=== PATIENT | female | born 1975 | race African-American/Black ===

== ENCOUNTER 2021-09-18 08:00 | Emergency (ER) | payer MEDICAID, MEDICARE, SELFPAY | END 2021-09-18 08:59 | disposition home or self-care (01) | LOC: CSHERS 08:00 | DX: M54.2 Cervicalgia (principal); F17.210 Nicotine dependence, cigarettes, uncomplicated | CPT/HCPCS: 99283 ==

== ENCOUNTER 2021-12-11 13:06 | Emergency (ER) | payer SELFPAY ==
[2021-12-11] MEDS ORDERED: Dexamethasone 4 MG TAB ONE (13:59)
[2021-12-11] MEDS ORDERED: Famotidine 20 MG TAB ONE (14:02)
== END 2021-12-11 14:16 | disposition home or self-care (01) ==
LOC: CSHERS 13:06
DX: R21 Rash and other nonspecific skin eruption (principal)
CPT/HCPCS: 99282; J8540

== ENCOUNTER 2021-12-31 20:09 | Emergency (ER) | payer SELFPAY ==
[2021-12-31] MEDS ORDERED: diphenhydrAMINE 50 MG/ML VIAL ONE (20:48)
[2021-12-31] MEDS ORDERED: Dexamethasone 10 MG/ML VIAL ONE (20:48)
[2021-12-31] MEDS ORDERED: hydrOXYzine 25 MG TAB ONE (21:06)
== END 2021-12-31 21:08 | disposition home or self-care (01) ==
LOC: CSHERS 20:09
DX: L30.9 Dermatitis, unspecified (principal); F17.210 Nicotine dependence, cigarettes, uncomplicated
CPT/HCPCS: 96372; 99282; J1100; J1200